=== PATIENT | female | born 1965 | race Caucasian/White ===

== ENCOUNTER 2025-02-21 09:52 | Outpatient (AMB) | payer OTHER, SELFPAY ==
--- NOTE | 2025-02-21 09:55 | MHC.OFFVIS ---
Vital Signs 02/21/25 10:07 Height 55 ft Weight 149 lb BMI 0.2 BP 114/60 Blood Pressure Location Lt brachial Position Sitting Pulse 58 Pulse Oximetry (%) 98 Oxygen Delivery Method Room Air Intake Visit Reasons: colo screening Intake Note: Patient new consult for pre Colonoscopy screening. Patient denies any GI issues. Curtain Drier Required: No Accompanied by: Spouse Allergies acetaminophen (From Vicodin) Allergy (Mild, Verified 02/21/25 09:55) Unknown hydrocodone (From Vicodin) Allergy (Mild, Verified 02/21/25 09:55) Unknown meperidine (From Demerol) Allergy (Mild, Verified 02/21/25 09:55) Unknown sulfamethoxazole (From Bactrim) Allergy (Mild, Verified 02/21/25 09:55) Unknown trimethoprim (From Bactrim) Allergy (Mild, Verified 02/21/25 09:55) Unknown Medication List - Last Reconciled 02/21/25 by Taya Cade CNP famotidine 40 mg PO DAILY ibuprofen 800 mg PO Q8H metoprolol tartrate 25 mg PO BID HPI HPI colo screening: Details: Patient is a 59-year-old female with PMH of diverticulosis, hyperlipidemia, anxiety, nicotine dependence and GERD. Patient is accompanied by her John. Patient presents for colorectal cancer (CRC) screening after PCP referral, expressing preference for Cologuard over colonoscopy due to anxiety and hx of diverticulitis. First diverticulitis flare occurred ~8 years ago, possibly after daily watermelon consumption; initial workup included imaging. Most recent flare on Sep 21, characterized by urinary urgency without significant output, lightheadedness, and hot sweats, but no bowel movement issues. Treated empirically with abx, with rapid symptom resolution. Since eliminating bread, bagels, and croissants ~3 months ago, pt reports complete resolution of heartburn and constipation, previously triggered by bread products. Current bowel habits are regular, with no blood in stool, no abdominal pain, and no bloating. She reports upper endoscopy 10 yrs ago for severe reflux showed excess acid; started on acid suppression, now on famotidine 40 mg daily with good control. No dysphagia, N/V, or unexplained weight loss. Reports rare palpitations, started on metoprolol after cardiology evaluation. Occasional ?foggy brain,? attributed to stress and family hx of dementia. Social hx: -socia lETOH use 1-2x/month -denies recreational drug use -current 1/2 ppd smoker, attempting reduction - family hx as below -denies personal hx of CA -tolerated anesthesia in the past without difficulty. PFSH Medical History (Updated 02/21/25 @ 14:57 by Taya Cade CNP) Non-celiac gluten sensitivity Acid reflux Diverticular disease Colon cancer screening Family History (Updated 02/21/25 @ 10:07 by Gayla Gómez) Mother Breast CA Dementia Father Heart disease Social History (Updated 02/21/25 @ 10:05 by Gayla Gómez) Household Members: Family Alcohol intake: current Alcohol intake frequency: holidays/special occasions only Patient Tobacco Use Status: Current everyday Tobacco user Use of substances other than those prescribed or required for medical reasons: No Review of Systems Const Reports as per HPI ENT Reports as per HPI Card Reports as per HPI Resp Reports as per HPI GI Reports as per HPI Reports as per HPI Physical Exam Vital Signs: Last Vital Signs Pulse 58 02/21/25 10:07 BP 114/60 02/21/25 10:07 Pulse Ox 98 02/21/25 10:07 Oxygen Delivery Method Room Air 02/21/25 10:07 BMI result Body Mass Index 0.2 Const General: healthy appearing, no acute distress and well developed Nutritional Appearance: average body habitus Orientation/consciousness: patient oriented x3 HEENT Head: Yes normal to inspection, Yes normocephalic and Yes atraumatic Face and sinus: Yes normal facial exam Eyes General: appearance normal, both eyes and all related structures Neck Neck: Yes normal visual inspection Resp Effort & Inspection: normal respiratory effort, able to speak in complete sentences, no tracheal deviation and symmetric chest movement Auscultation: clear to auscultation bilaterally Cardio Jugular venous distension: no JVD Rate: regular rate Rhythm: regular rhythm Heart sounds: S1 normal heart sound present, S2 normal heart sound present, no gallops and no murmurs GI Inspection: Yes normal to inspection and No distended Palpation (GI): Soft to palpation, not firm, nontender and No hepatosplenomegaly present Auscultation: normoactive bowel sounds Neuro General: patient oriented x3 Gait exam (Neuro): Normal gait present Psych Appearance: grossly normal Mental Status: mental status grossly normal Speech and movement: Normal speech and movement present Affect: normal affect Attitude: cooperative Thought process: Normal thought process present Thought content: Normal thought content present Insight: Good insight present (Psych) Judgement: Good judgement present (Psych) Assessment & Plan Assessment & Plan (1) Colon cancer screening: Code(s): Z12.11 - Encounter for screening for malignant neoplasm of colon Category: Medical Plan: Hx of diverticulosis with multiple flares increases CRC risk; guideline-based CRC screening indicated. Pt prefers non-invasive screening (Cologuard) over colonoscopy. Additional Tests: Order Cologuard for CRC screening; if positive, recommend colonoscopy for definitive dx and polyp removal. Medications: Continue current regimen; abx only if future diverticulitis flare. Lifestyle Modifications: Maintain high-fiber, low-bread diet; continue hydration and regular exercise; avoid constipation to reduce risk of future flares. Follow-Up:F/U as needed based on Cologuard results; if positive, discuss colonoscopy. Monitor for new GI sx (pain, bleeding, change in BM). (2) Diverticular disease: Code(s): K57.90 - Diverticulosis of intestine, part unspecified, without perforation or abscess without bleeding Category: Medical Plan: as above (3) Acid reflux: Code(s): K21.9 - Gastro-esophageal reflux disease without esophagitis Category: Medical Qualifiers: Esophagitis presence: esophagitis presence not specified Qualified Code(s): K21.9 - Gastro-esophageal reflux disease without esophagitis Plan: Hx of severe reflux, now well-controlled with famotidine and dietary changes. Additional Tests: Repeat upper endoscopy only if sx recur or worsen. Medications: Continue famotidine 40 mg PO QD; consider PPI if sx recur. Lifestyle Modifications:Continue avoidance of bread; monitor for triggers; avoid NSAIDs if possible (4) Non-celiac gluten sensitivity: Code(s): K90.41 - Non-celiac gluten sensitivity Category: Medical Plan: Symptom improvement with bread/gluten avoidance; celiac serology offered but declined. Additional Tests: Offer celiac serology if pt desires in future. Lifestyle Modifications:Continue gluten/bread avoidance as tolerated. Follow-Up:Monitor for recurrence of GI sx; reassess if dietary changes no longer effective. Plan Follow-up after Cologuard if warranted or sooner as needed Time: I spent a total of 35 minutes on the date of encounter which includes: Preparing to see the patient (reviewed previous documentation, test results and medical history) Performing a medically appropriate exam and/or evaluation Ordering medications, tests, and procedures Documenting clinical information in the health record Orders: Orders AMB Cologuard Today Z12.11 - Encounter for screening for malignant neoplasm of colon Coding Level of Care Code New Pt New Pt Level 3 (21484) Patient Type New Diagnoses Colon cancer screening Z12.11 Diverticular disease K57.90 Gastroesophageal reflux disease, unspecified whether esophagitis present K21.9 Esophagitis presence: esophagitis presence not specified Non-celiac gluten sensitivity K90.41
[2025-02-21 10:07] VITALS: BP 114/60; PULSE 58; O2SAT 98
== END 2025-02-21 10:44 | disposition home or self-care (01) ==
LOC: HO.HGI 09:52
PROVIDERS: PCP Physician Assistant Medical; Visit Provider Nurse Practitioner Family
DX: K57.90 Diverticulosis of intestine, part unspecified, without perforation or abscess without bleeding (principal); K90.41 Non-celiac gluten sensitivity; K21.9 Gastro-esophageal reflux disease without esophagitis
CPT/HCPCS: 99203